=== PATIENT | male | born 1990 | race Caucasian/White ===

== ENCOUNTER → 2017-02-01 | Outpatient (CLI) | payer OTHER ==
--- NOTE | 2017-02-01 22:16 | MR ---
EXAMINATION TYPE: MR knee RT wo con DATE OF EXAM: 02/01/2017 COMPARISON: NONE HISTORY: Rt knee pain per order. Pain and swelling for years per patient. TECHNIQUE: Multiplanar, multisequence images of the knee is performed without IV contrast. FINDINGS: MEDIAL MENISCUS: Anterior horn is intact without tear. Oblique increased signal posterior horn of med ial meniscus is present does not extend to articular surface. LATERAL MENISCUS: Anterior and posterior horns are intact without tear. CRUCIATE LIGAMENTS: The anterior and posterior cruciate ligaments are intact. Some increased signal a nterior cruciate ligament is noted. COLLATERAL LIGAMENTS: The medial collateral ligament and lateral collateral ligament complex are inta ct and unremarkable. EXTENSOR MECHANISM: Visualized quadriceps and patellar tendons are intact. EFFUSION: No significant suprapatellar joint effusion. POPLITEAL CYST: No popliteal/bolton cyst. TRICOMPARTMENT SPACES: Tricompartment joint spaces are preserved. Mild tibial condylar spurring is pr esent. CARTILAGE: Tricompartment articular cartilage is maintained. There is no chondromalacia patella ident ified. BONE MARROW SIGNAL: No focal abnormal marrow signal is appreciated. OTHER: No additional significant abnormality is appreciated. IMPRESSION: 1. Intrasubstance tear posterior horn of medial meniscus. 2. Myxoid degeneration anterior cruciate ligament. 3. Tibial condylar spurring.
== END | disposition home or self-care (01) ==
LOC: RADMRIMAIN 15:36
PROVIDERS: ATTEND Family Medicine
DX: S83.241A Other tear of medial meniscus, current injury, right knee, initial encounter (principal)